=== PATIENT | male | born 1965 | race Caucasian/White ===

== ENCOUNTER 2022-07-13 07:31 | Outpatient (NON) | payer MEDICARE, SELFPAY | END 2022-07-13 07:32 | disposition home or self-care (01) | PROVIDERS: PCP Family Medicine; Visit Provider Internal Medicine Gastroenterology | DX: Z01.89 Encounter for other specified special examinations (principal) | CPT/HCPCS: 88305 ==

== ENCOUNTER 2022-07-13 09:18 | Day surgery (SDC) | payer MEDICARE, SELFPAY ==
[2022-07-10 08:48] VITALS: BMI 27.1
[2022-07-13 11:10] VITALS: BP 121/84; PULSE 80; RESP 20; TEMP 36.6; O2SAT 100
--- NOTE | 2022-07-13 11:24 | WPDANESEPPF ---
Anes - Initial Pre Proc Eval Procedure: Operation Date: 07/13/22 12:30 Proposed Procedures p Esophagogastroduodenoscopy - Roger Fuller MD Date/Time: 07/13/22 11:24 Surgeon: Roger Fuller MD Pre Op Diagnosis: Gerd Patient Data Age: 56 Gender: M Height: 1.78 m Weight: 88.2 kg Last Vital Signs Temp 36.6 C 07/13/22 11:10 Pulse 80 07/13/22 11:10 Resp 20 07/13/22 11:10 BP 121/84 07/13/22 11:10 Pulse Ox 100 07/13/22 11:10 O2 Del Method Room Air 07/13/22 11:10 Allergies Allergy/AdvReac Type Severity Reaction Status Date / Time SULFA Allergy Unknown Unknown Uncoded 07/13/22 11:16 clonazepam AdvReac Intermediate Muscle Pain Uncoded 07/13/22 11:16 Home Medications Medication Instructions Recorded Confirmed Type aspirin 81 mg tablet,delayed 81 mg PO DAILY 06/19/22 07/13/22 History release atorvastatin 80 mg tablet 80 mg PO DAILY 06/19/22 07/13/22 History calcium carbonate 300 mg (750 mg) 300 mg PO BID PRN Acid Reflux 06/19/22 07/13/22 History chewable tablet (Tums) carvedilol 3.125 mg tablet (Coreg) 3.125 mg PO DAILY 06/19/22 07/13/22 History lisinopril 40 mg tablet 40 mg PO DAILY 06/19/22 07/13/22 History nifedipine 60 mg tablet,extended 60 mg PO DAILY 06/19/22 07/13/22 History release nitroglycerin 0.4 mg sublingual 0.4 mg sublingual Q5M PRN Chest 06/19/22 07/13/22 History tablet Pain pantoprazole 40 mg tablet,delayed 40 mg PO QAM 06/19/22 07/13/22 History release duloxetine 30 mg capsule,delayed 30 mg PO DAILY #90 caps 07/08/22 07/13/22 Rx release (Cymbalta) lorazepam 1 mg tablet (Ativan) 1 mg PO QID PRN anxiety #90 tabs 07/08/22 07/13/22 Rx Patient hx anesthesia problems: none Family hx anesthesia problems: none Results Review: All pre-operative results and documents have been reviewed as part of the pre-operative evaluation. [facility] Past Medical History Medical History (Updated 07/13/22 @ 11:29 by Murali Nair MD) Anxiety Back pain Chronic GERD Hyperlipidemia Hypertension Overweight (BMI 25.0-29.9) Family History Family History ) Father Hypertension Heart disease Cerebrovascular accident Mother Cancer Social History Social History ) Smoking status: Unknown if ever smoked Tobacco type: smokeless tobacco Smokeless tobacco user: chewing tobacco Alcohol intake: unknown Substance use: never Substance use type: does not use Living arrangements: with family Occupation/Education: other Additional occupation/education comments: disability Spiritual care concerns: No Agree to blood products: Yes Anes - Eval Final PreProcedure Day of Procedure 07/13/22 11:24 Patient weight: overweight Heart: regular rate and rhythm Lungs: clear to auscultation and normal air movement Airway: Mallampati scale class II Neurological: alert and oriented Last oral intake: >/= 8 hours ASA classification: II Emergent: no Anesthetic plan: proceed Anesthesia type and monitoring: general GIVS Results Review: All pre-operative results and documents have been reviewed as part of the pre-operative evaluation. Informed Consent: The patient's anesthetic plan and its attendant risks and benefits were discussed with the patient/family/POA. Questions were solicited and answers provided to the satisfaction of the patient/family/POA.
[2022-07-13] MEDS: LACTATED RINGERS 1,000 ML 150 ML IV CONT (11:32)
--- NOTE | 2022-07-13 12:57 | PM.HPGS ---
History of Present Illness History of Present Illness Consent: Risks, benefits, and alternatives have been discussed and questions answered. Patient agrees to proceed with procedure. Chief complaint: Gerd Narrative: Oniel Christensen is a 56 year old male with history of dyspepsia mostly when he gets anxious (belching, epigastric discomfort)- using pantoprazole daily, never had egd Review of Systems Constitutional: Constitutional: Denies headache(s) and Denies weakness Eyes: Eyes: Denies blurry vision ENT: Reports Normal hearing present, Denies headache(s) and Denies neck pain Cardiovascular: Cardiovascular: Denies chest pain and Denies dyspnea Respiratory: Respiratory: Denies dyspnea Gastrointestinal: Gastrointestinal: Reports no additional gastrointestinal complaints Genitourinary: Genitourinary: Denies dysuria Musculoskeletal: Musculoskeletal: Denies neck pain Integumentary/Breasts: Skin/Breast: Denies dry skin Neurologic: Reports Normal hearing present, Denies headache(s) and Denies weakness Psychiatric: Psychiatric: Denies anxiety Endocrine: Endocrine: Denies change in body appearance Hematologic/Lymphatic: Hematologic/Lymphatic: Denies easy bleeding Allergic/Immunologic: Allergic/Immunologic: Denies urticaria PMFSH Past Medical History Medical History (Updated 07/13/22 @ 12:58 by Roger Fuller MD) Anxiety Back pain Chronic GERD Dyspepsia Hyperlipidemia Hypertension Overweight (BMI 25.0-29.9) Family History Family History Father Hypertension Heart disease Cerebrovascular accident Mother Cancer Social History Social History Smoking status: Unknown if ever smoked Tobacco type: smokeless tobacco Smokeless tobacco user: chewing tobacco Alcohol intake: unknown Substance use: never Substance use type: does not use Living arrangements: with family Occupation/Education: other Additional occupation/education comments: disability Spiritual care concerns: No Agree to blood products: Yes Meds Home Medications and Allergies Home Medications Medication Instructions Recorded Confirmed Type aspirin 81 mg tablet,delayed 81 mg PO DAILY 06/19/22 07/13/22 History release atorvastatin 80 mg tablet 80 mg PO DAILY 06/19/22 07/13/22 History calcium carbonate 300 mg (750 mg) 300 mg PO BID PRN Acid Reflux 06/19/22 07/13/22 History chewable tablet (Tums) carvedilol 3.125 mg tablet (Coreg) 3.125 mg PO DAILY 06/19/22 07/13/22 History lisinopril 40 mg tablet 40 mg PO DAILY 06/19/22 07/13/22 History nifedipine 60 mg tablet,extended 60 mg PO DAILY 06/19/22 07/13/22 History release nitroglycerin 0.4 mg sublingual 0.4 mg sublingual Q5M PRN Chest 06/19/22 07/13/22 History tablet Pain pantoprazole 40 mg tablet,delayed 40 mg PO QAM 06/19/22 07/13/22 History release duloxetine 30 mg capsule,delayed 30 mg PO DAILY #90 caps 07/08/22 07/13/22 Rx release (Cymbalta) lorazepam 1 mg tablet (Ativan) 1 mg PO QID PRN anxiety #90 tabs 07/08/22 07/13/22 Rx Allergies Allergy/AdvReac Type Severity Reaction Status Date / Time SULFA Allergy Unknown Unknown Uncoded 07/13/22 11:16 clonazepam AdvReac Intermediate Muscle Pain Uncoded 07/13/22 11:16 Vital Signs Vital Signs - 24 hr 07/13/22 11:10 Temperature 97.9 F Pulse Rate 80 Respiratory Rate 20 Blood Pressure 121/84 Pulse Oximetry 100 Oxygen Delivery Room Air Exam Const: General: comfortable and no acute distress HENMT: Face/Nose/Sinus: Normal nares present Eyes: General: appearance normal, both eyes and all related structures Neck: Neck: no JVD Resp: Auscultation: clear to auscultation bilaterally Cardio: Rate: regular rate Rhythm: regular rhythm GI: Inspection: non-distended GI Palp: Yes Soft to palpation Skin: General skin exam: normal color Neuro:
[2022-07-13] MEDS: BENZOCAINE (*SP) 60 ML SPRAY CAN (HURRICAINE) 1 SPRAY MUCOUS MEM (13:15)
[2022-07-13 13:21] VITALS: BP 113/80; PULSE 60; RESP 12; O2SAT 97
[2022-07-13 13:31] VITALS: BP 113/76; PULSE 59; RESP 16; O2SAT 98
[2022-07-13 13:41] VITALS: BP 122/78; PULSE 57; RESP 20; O2SAT 100
--- NOTE | 2022-07-13 15:16 | WPDANESPN ---
Anes - Prog Note Post-Op Date/Time: 07/13/22 15:16 Cardiovascular status: normal Respiratory status: normal Airway patency: baseline Mental status: baseline Post-Op hydration status: normal Vital Signs: Last Vital Signs Temp 36.6 C 07/13/22 11:10 Pulse 57 L 07/13/22 13:41 Resp 20 07/13/22 13:41 BP 122/78 07/13/22 13:41 Pulse Ox 100 07/13/22 13:41 O2 Del Method Room Air 07/13/22 13:41 Pain Score (VAS): 0 I/O: Intake & Output 07/12/22 07/13/22 07/13/22 23:59 07:59 15:59 Intake Total 400 Balance 400 Post-procedural complaints: none Patient Feedback: Patient satisfied with anesthetic care.
== END 2022-07-13 14:00 | disposition home or self-care (01) ==
PROVIDERS: PCP Family Medicine; Visit Provider Internal Medicine Gastroenterology
PROC: 0DJ08ZZ Inspection of Upper Intestinal Tract, Via Natural or Artificial Opening Endoscopic (ICD-10-PCS; CPT 43235; principal; 2022-07-13 12:30)
DX: R10.13 Epigastric pain (principal)
CPT/HCPCS: 43239